=== PATIENT | female | born 1950 | race Caucasian/White ===

== ENCOUNTER 2018-08-14 21:08 | Emergency (ER) | payer BC, OTHER ==
[~2018-08-14] VITALS: Ht 152.4 cm; Wt 90.7 kg
[2018-08-14 21:12] VITALS: BP_SYST 138
--- NOTE | 2018-08-14 21:19 | NUR ---
211 - Patient to ER bed 4 to gown for evaluation. Side rails up.
--- NOTE | 2018-08-14 21:36 | NUR ---
2136 - ER at bedside examining patient.
--- NOTE | 2018-08-14 21:48 | NUR ---
2148 - Patient given written and verbal discharge instructions and verbalizes understanding. ER MD discussed with patient the results and treatment provided. Patient in stable condition. ID arm band removed. Patient educated on pain management and to follow up with PMD. Opportunity for questions provided and answered. Medication side effect fact sheet provided.
[2018-08-14 21:49] VITALS: BP_SYST 138
== END 2018-08-14 21:48 | disposition home or self-care (01) ==
LOC: SED 21:08
DX: S01.01XA Laceration without foreign body of scalp, initial encounter (principal); E11.9 Type 2 diabetes mellitus without complications; I10 Essential (primary) hypertension; X58.XXXA Exposure to other specified factors, initial encounter; Y93.89 Activity, other specified; Y92.89 Other specified places as the place of occurrence of the external cause; Y99.8 Other external cause status
CPT/HCPCS: 99283

== ENCOUNTER 2022-08-07 11:47 | Inpatient (IN) | payer BC, OTHER ==
[~2022-08-07] VITALS: Ht 165.1 cm; Wt 87.1 kg
[2022-08-07 11:47] VITALS: BP_SYST 90
--- NOTE | 2022-08-07 11:50 | NUR ---
BROUGHT IN BY [facility], PLACED IN BED #3 REPORT GIVEN TO JL
[2022-08-07] MEDS ORDERED: NACL 0.9% 1,000 ML IV ONE ×2 (12:15→13:00)
--- NOTE | 2022-08-07 12:17 | NUR ---
PT TAD after being found on floor by her belkis AOX3-4 VSS Able to make needs known IV 18G inserted left AC Will continue to monitor
[2022-08-07 12:37] LABS: BASOPHILS % (AUTO) 0.3 % (0.0-2.0); EOSINOPHILS % (AUTO) 0.1 % (0.0-4.0); HEMATOCRIT 30.7 % (36-48); HEMOGLOBIN 10.2 g/dL (12.0-16.0); LYMPHOCYTES # (AUTO) 0.9 K/uL (1.0-5.5); LYMPHOCYTES % (AUTO) 10.7 % (20.5-51.5); MEAN CORPUSCULAR HEMOGLOBIN 38 pg (27-31); MEAN CORPUSCULAR HGB CONC 33 % (32-36); MEAN CORPUSCULAR VOLUME 115 fL (79.0-98.0); MONOCYTES # (AUTO) 0.6 K/uL (0.0-1.0); MONOCYTES % (AUTO) 6.9 % (1.7-9.3); NEUTROPHILS # (AUTO) 7.3 K/uL (1.8-7.7); PLATELET COUNT (AUTO) 127 K/uL (130-430); RED BLOOD CELL COUNT(AUTO) 2.68 MIL/uL (4.2-6.2); RED CELL DISTRIBUTION WIDTH 18.9 % (9.0-15.0); WHITE BLOOD COUNT (AUTO) 8.9 K/uL (4.8-10.8)
[2022-08-07 12:52] LABS: ANION GAP 23 (5-15); CALCIUM 9.4 mg/dL (8.4-11.0); CHLORIDE 102 mmol/L (98-107); CREATININE 3.47 mg/dL (0.55-1.30); GLUCOSE 110 mg/dL (70-99); UREA NITROGEN, BLOOD 64 mg/dL (8-21)
[2022-08-07 12:56] LABS: INR 1.4 (0.8-1.2); PROTHROMBIN TIME 14.1 SECS (9.5-12.5)
[2022-08-07 12:58] LABS: ALANINE AMINOTRANSFERASE 99 U/L (12-78); ALBUMIN 3.1 g/dL (3.4-4.8); ALCOHOL, BLOOD 5 mg/dL (<10); ASPARTATE AMINOTRANSFERASE 69 U/L (10-37); LIPASE 321 U/L (73-393); PHOSPHORUS 7.1 mg/dL (2.7-4.5); TOTAL BILIRUBIN 2.6 mg/dL (0.0-1.0)
[2022-08-07 13:00] LABS: ACETAMINOPHEN < 1 ug/mL (1-30)
[2022-08-07 13:05] LABS: BILIRUBIN,URINE 2+ (NEGATIVE); BLOOD, URINE 1+ (NEGATIVE); CLARITY/URINE TURBID (CLEAR); COLOR,URINE YELLOW (YELLOW); GLUCOSE,URINE NEGATIVE (NEGATIVE); KETONES,URINE 1+ (NEGATIVE); LEUKOCYTE ESTERASE ,URINE 2+ (NEGATIVE); NITRITE, URINE NEGATIVE (NEGATIVE); PH,URINE 5.5 (5.0-8.0); PROTEIN URINE 1+ (NEGATIVE)
[2022-08-07 13:13] LABS: BACTERIA,URINE MODERATE /HPF (None Seen)
[2022-08-07 13:20] LABS: BARBITURATE, URINE NEGATIVE (NEG <=200); BENZODIAZEPINE, URINE NEGATIVE (NEG <=150); CANNABINOID, URINE NEGATIVE (NEG <=50); COCAINE, URINE NEGATIVE (NEG <=150); METHAMPHETAMINES SCREEN,URINE NEGATIVE (NEG <=500); OPIATE, URINE NEGATIVE (NEG <=100); PHENCYCLIDINE SCREEN,URINE NEGATIVE (NEG <=25); UR TRICYCLIC ANTIDEPRESSANTS NEGATIVE (NEG <=300); URINE AMPHETAMINE NEGATIVE (NEG <=500); URINE METHADONE NEGATIVE (NEG <=200); URINE OXYCODONE SCREEN NEGATIVE (NEG <=100); URINE PROPOXYPHENE SCREEN NEGATIVE (NEG <=300)
--- NOTE | 2022-08-07 13:20 | NUR ---
COVID and UA specimens sent to lab
[2022-08-07 13:21] LABS: CKMB RELATIVE INDEX 4.2 (0.0-2.9); CREATINE KINASE MB 10.1 ng/mL (0-3.6)
[2022-08-07] MEDS ORDERED: cefTRIAXone 1 GM in D5W 50 ML IV ONE (13:45)
--- NOTE | 2022-08-07 14:28 | NUR ---
Pt resting patiently in bed Tachycardic AOX4 Able to make needs known Will continue to monitor
[2022-08-07] MEDS ORDERED: cefTRIAXone 1 GM VIAL ONE (14:38)
--- NOTE | 2022-08-07 14:51 | NUR ---
S/W sister Pham States that patient cognitive abilities has secreased over that last few weeks Also reports family history of Stroke and CA
[2022-08-07] MEDS ORDERED: ONDANSETRON HCL 4 MG/2 ML VIAL IVP PRN (15:15)
[2022-08-07 15:17] LABS: AMYLASE 34 U/L (0-100); LIPASE 314 U/L (73-393)
[2022-08-07] MEDS: NACL 0.9% 1,000 ML IV SCH ×2 (15:37→15:48)
[2022-08-07] MEDS ORDERED: ENOXAPARIN SODIUM 30 MG/0.3 ML SYRINGE SUBCUT ONE (15:45)
[2022-08-07] MEDS ORDERED: LORazepam 2 MG/ML VIAL IVP ONE (15:45)
--- NOTE | 2022-08-07 15:49 | NUR ---
Per Nati, Inspector Insulation MRI to be done tomorrow morning
--- NOTE | 2022-08-07 17:02 | NUR ---
Admit bed requested Patient will be admitted to care of . Admitted to TELE unit. Diagnosis AMS, REGINA Inpatient (Yes or No) YES Observation (Yes or No) NO Orientation concerns or request close to nursing station (Yes or No) NO Covid Status NEG On vent or bipap NO Isolation requirements NO Needs a sitter NO From Home (Yes or if No enter name of facility) [facility] Requires Dialysis (Yes or No) NO Med Rec Completed (Yes of No) YES
--- NOTE | 2022-08-07 17:12 | NUR ---
Pt resting comfortably in bed at this time AOX4 VSS Able to make needs known Pt to be admitted to tele under Dr. walker
--- NOTE | 2022-08-07 17:47 | NUR ---
Patient will be admitted to Tele in care of Dr. Chase. Belongings list completed. Complete and up to date summary report printed. SBAR report to be given at bedside with opportunity for questions.
--- NOTE | 2022-08-07 17:54 | NUR ---
CONSULTATION PAGED/CALLED Reason for Consultation: [] REGINA Person Who was Notified: [] ASHLI Consulting Physician: [] DR SALGUERO Motion Designer Specialty: [] NEPHRO Ordering Physician: [] DR LLOYD
--- NOTE | 2022-08-07 17:57 | NUR ---
CONSULTATION PAGED REASON FOR CONSULTATION:REGINA WAS CONSULT CALLED?Y PERSON WHO WAS NOTIFIED:JESSICA CONSULTING PHYSICIAN:TANA PALMA ( TOY ASSEMBLER WOOD) HAZARDOUS WASTE MATERIAL TECHNICIAN SPECIALTY:NEPHRO HAZARDOUS WASTE MATERIAL TECHNICIAN PHONE NUMBER:[phone] REQUESTING PHYSICIAN:KIRSTY MEYER
--- NOTE | 2022-08-07 17:57 | NUR ---
CONSULTATION PAGED/CALLED Reason for Consultation: [] ELEVATED TROP Person Who was Notified: [] ASHLI Consulting Physician: [] DR HODGES Call Worker Person Specialty: [] CLEANER WALL Ordering Physician: [] DR LLOYD
--- NOTE | 2022-08-07 17:58 | NUR ---
TEXTED NEUROLOGY CONSULT TO DR Carole BLAS RE: DENIS ON HIS CELL PHONE.
[2022-08-07 18:04] VITALS: BP_SYST 102
--- NOTE | 2022-08-07 18:10 | NUR ---
ADMIT NOTES- IN BED, FROM ER, ALERT,FORGETFUL, PER PATIENT SHE LIVES ALONE AND SHE IS WORRIED ABOUT HER HOUSE AT THIS TIME.DENIES ANY PAIN, ON MILD DISTRESS, O2 SAT IS 88% APPLIED O2 2L, DENIES ANY SHORTNESS OF BREATH, O2 SAT IS 90 91% IN 2L. BED ALARM ON, CALL LIGHT WITHIN REACH.
[2022-08-07 20:00] VITALS: BP_SYST 96
[2022-08-07] MEDS: PIPERACILLIN/TAZO 2.25G/DEX-IS 50 ML IV SCH (23:25)
[2022-08-08] VITALS: BP_SYST 100
[2022-08-08] MEDS: NACL 0.9% 1,000 ML IV SCH ×4 (01:15→23:19)
[2022-08-08] MEDS: PIPERACILLIN/TAZO 2.25G/DEX-IS 50 ML IV SCH ×3 (05:49→18:39)
[2022-08-08 06:27] LABS: BASOPHILS # (AUTO) 0.1 K/uL (0.0-0.2); BASOPHILS % (AUTO) 0.9 % (0.0-2.0); EOSINOPHILS % (AUTO) 0.1 % (0.0-4.0); HEMATOCRIT 31.8 % (36-48); HEMOGLOBIN 10.4 g/dL (12.0-16.0); LYMPHOCYTES # (AUTO) 1.1 K/uL (1.0-5.5); LYMPHOCYTES % (AUTO) 10.4 % (20.5-51.5); MEAN CORPUSCULAR HEMOGLOBIN 38 pg (27-31); MEAN CORPUSCULAR HGB CONC 33 % (32-36); MEAN CORPUSCULAR VOLUME 116 fL (79.0-98.0); MONOCYTES # (AUTO) 0.7 K/uL (0.0-1.0); MONOCYTES % (AUTO) 6.6 % (1.7-9.3); NEUTROPHILS # (AUTO) 8.3 K/uL (1.8-7.7); RED BLOOD CELL COUNT(AUTO) 2.75 MIL/uL (4.2-6.2); WHITE BLOOD COUNT (AUTO) 10.2 K/uL (4.8-10.8)
[2022-08-08 06:58] LABS: ALANINE AMINOTRANSFERASE 108 U/L (12-78); ALBUMIN 3.1 g/dL (3.4-4.8); ANION GAP 25 (5-15); ASPARTATE AMINOTRANSFERASE 73 U/L (10-37); CALCIUM 8.9 mg/dL (8.4-11.0); CHLORIDE 104 mmol/L (98-107); CREATININE 3.49 mg/dL (0.55-1.30); GLUCOSE 96 mg/dL (70-99); UREA NITROGEN, BLOOD 63 mg/dL (8-21)
[2022-08-08] MEDS ORDERED: GASTROGRAFIN 120 ML ONE (08:46)
[2022-08-08] MEDS ORDERED: DIATR MEGLU/DIATRIZ SOD 30 ML SOLUTION PO ONE (08:49)
[2022-08-08 08:53] LABS: INR 1.4 (0.8-1.2); PROTHROMBIN TIME 13.8 SECS (9.5-12.5)
--- NOTE | 2022-08-08 09:13 | NUR ---
DR HODGES ORDERED THE LIST OF MEDICATION FROM DR JAIR OLGUIN OFFICE. SPOKE TO KEON AND WILL FAX THE LIST OF MED.
[2022-08-08] MEDS: ENOXAPARIN SODIUM 30 MG/0.3 ML SYRINGE SUBCUT SCH (10:14)
[2022-08-08 11:47] LABS: PLATELET COUNT (AUTO) 139 K/uL (130-430)
[2022-08-08 12:00] VITALS: BP_SYST 108
[2022-08-08] MEDS ORDERED: LISI2.5T48 PO (14:07)
[2022-08-08] MEDS ORDERED: METF-379 PO (14:07)
[2022-08-08] MEDS ORDERED: SIMV-345 PO (14:07)
[2022-08-08] MEDS ORDERED: ASA81 PO (14:07)
--- NOTE | 2022-08-08 15:26 | NUR ---
Wound Evaluation: Wound Consult ordered for Low Thierno Score. Patient evaluated for a low Thierno score of 14. Patient was awake, alert, confused and received in a Ml Bed. Patient needs to be turned in bed. Skin Assessment: Left Elbow Blanchable redness with dry excoriations. Extremity has multiple ecchymotic areas. Right Elbow Blanchable redness with dry excoriations. Extremity has multiple ecchymotic areas. Right Knee Blanchable redness with dry scabs. Extremity has multiple ecchymotic areas. Left Knee Blanchable redness with dry excoriations. Extremity has multiple ecchymotic areas. Recommend: Open to air. Left Buttock Near Ischium Blanchable redness with dry excoriations. Site has multiple ecchymotic areas. Recommend: Cover site with foam dressing. Reposition patient side to side only every 2 hours with pillow support. Elevate trunk and left pelvis with pillows. Keep an additional pillow on left pelvis at all times. Also recommend: Elevate, off-load and float bilateral heels with pillows. Offload pressure areas with pillows for pressure re-distribution. Perform skin care and monitor skin integrity Q shift. Use moisture barrier cream on moisture susceptible areas QID and PRN for soiling. Place patient on a low air-loss mattress.
--- NOTE | 2022-08-08 15:36 | NUR ---
ST EVALUATION COMPLETED. ST TX NOT INDICATED AT THIS TIME. RECOMMEND PO DIET OF PUREE AND THIN LIQUID. 1:1 ASSISTANCE AND FULL ASPIRATION PRECAUTIONS
[2022-08-08 16:00] VITALS: BP_SYST 116
--- NOTE | 2022-08-08 19:50 | NUR ---
Opening note Received SBAR report from ASH Flores. Patient is awake, resting in bed, no distress. IVF is infusing via IV to LFA. Bed is locked in lowest position, side rails up, call light w/in reach and bed alarm on.
[2022-08-08 20:50] VITALS: BP_SYST 110
[2022-08-08] MEDS: METOPROLOL TARTRATE 25 MG TABLET PO SCH (21:00)
--- NOTE | 2022-08-08 23:30 | NUR ---
Patient care, IVF Hung new bag of IVF and infusing well. Patient is incontinent: noted urine and BM on pad. She was provided w/ partial bed bath, new bed linen and pad.
--- NOTE | 2022-08-08 23:55 | NUR ---
In/out orona catheter Procedure explained to patient, she verbalized understanding and agreed to procedure. I/O orona catheter inserted w/use of sterile technique. A small amount, less than 10 ml of yellow urine returned, not enough to send a sample. joy.
[2022-08-09] MEDS: PIPERACILLIN/TAZO 2.25G/DEX-IS 50 ML IV SCH ×4 (00:36→18:39)
--- NOTE | 2022-08-09 00:36 | NUR ---
Zosyn Administered Zosyn as ordered, no s/sx of infiltration noted. B/P presently 113/72 HR 91. Safety precautions in place
[2022-08-09 01:15] VITALS: BP_SYST 113
--- NOTE | 2022-08-09 01:26 | NUR ---
care of patient taken over by myself at 0115. vital signs take at that time and documented. pt in bed, resting with eyes closed. pt able to answer my questions and make needs known. pt requested more sleep, and no other request were made. will take over charting and medication on patient at 0115.
[2022-08-09 04:00] VITALS: BP_SYST 106
[2022-08-09 06:54] LABS: BASOPHILS % (AUTO) 0.6 % (0.0-2.0); EOSINOPHILS % (AUTO) 0.4 % (0.0-4.0); HEMATOCRIT 29.5 % (36-48); HEMOGLOBIN 9.9 g/dL (12.0-16.0); LYMPHOCYTES # (AUTO) 1.2 K/uL (1.0-5.5); LYMPHOCYTES % (AUTO) 16.4 % (20.5-51.5); MEAN CORPUSCULAR HEMOGLOBIN 38 pg (27-31); MEAN CORPUSCULAR HGB CONC 33 % (32-36); MEAN CORPUSCULAR VOLUME 115 fL (79.0-98.0); MONOCYTES # (AUTO) 0.7 K/uL (0.0-1.0); MONOCYTES % (AUTO) 8.9 % (1.7-9.3); NEUTROPHILS # (AUTO) 5.5 K/uL (1.8-7.7); NEUTROPHILS % (AUTO) 73.7 % (40.0-70.0); PLATELET COUNT (AUTO) 109 K/uL (130-430); RED BLOOD CELL COUNT(AUTO) 2.58 MIL/uL (4.2-6.2); WHITE BLOOD COUNT (AUTO) 7.4 K/uL (4.8-10.8)
[2022-08-09 07:37] LABS: ALANINE AMINOTRANSFERASE 102 U/L (12-78); ALBUMIN 2.9 g/dL (3.4-4.8); ANION GAP 22 (5-15); ASPARTATE AMINOTRANSFERASE 61 U/L (10-37); CALCIUM 8.5 mg/dL (8.4-11.0); CHLORIDE 106 mmol/L (98-107); CREATININE 3.68 mg/dL (0.55-1.30); GLUCOSE 91 mg/dL (70-99); TOTAL BILIRUBIN 1.6 mg/dL (0.0-1.0); UREA NITROGEN, BLOOD 66 mg/dL (8-21)
[2022-08-09 07:38] LABS: RED CELL DISTRIBUTION WIDTH 19.2 % (9.0-15.0)
[2022-08-09 07:45] VITALS: BP_SYST 108
[2022-08-09] MEDS ORDERED: NACL 0.9% 1,000 ML IV SCH (08:15)
[2022-08-09 09:00] LABS: URINE SODIUM, RANDOM 8 mmol/L (40-220)
[2022-08-09] MEDS: ENOXAPARIN SODIUM 30 MG/0.3 ML SYRINGE SUBCUT SCH (09:28)
[2022-08-09] MEDS: METOPROLOL TARTRATE 25 MG TABLET PO SCH (09:37)
[2022-08-09] MEDS ORDERED: ALBUMIN HUMAN 5% 250 ML IV ONE (11:00)
[2022-08-09 13:35] VITALS: BP_SYST 123
[2022-08-09] MEDS: NACL 0.9% 1,000 ML IV SCH (13:43)
--- NOTE | 2022-08-09 15:55 | NUR ---
Dietitian Recommendations * Continue Pureed diet (Ensure TID comes standard w/ current diet; ONS yields 1050 kcal/day, 60 gm protein/day) * Encourage good PO intakes LP, MS, RD Please refer to Nutrition Assessment for details. Addendum: 08/09/22 at [address] Amended: Links added.
[2022-08-09 17:22] VITALS: BP_SYST 110
[2022-08-09 20:00] VITALS: BP_SYST 90
[2022-08-10] VITALS: BP_SYST 98
[2022-08-10] MEDS: PIPERACILLIN/TAZO 2.25G/DEX-IS 50 ML IV SCH ×4 (00:29→17:19)
[2022-08-10] MEDS: NACL 0.9% 1,000 ML IV SCH ×2 (02:34→23:00)
[2022-08-10 03:08] LABS: HEPATITIS A AB, IgM Negative (Negative); HEPATITIS B CORE AB, IgM Negative (Negative); HEPATITIS B SURFACE AG Negative (Negative)
[2022-08-10 04:00] VITALS: BP_SYST 95
[2022-08-10 07:42] LABS: BASOPHILS % (AUTO) 0.5 % (0.0-2.0); EOSINOPHILS # (AUTO) 0.1 K/uL (0.0-0.4); EOSINOPHILS % (AUTO) 1.3 % (0.0-4.0); HEMATOCRIT 28.1 % (36-48); HEMOGLOBIN 9.4 g/dL (12.0-16.0); LYMPHOCYTES # (AUTO) 1.2 K/uL (1.0-5.5); LYMPHOCYTES % (AUTO) 20.2 % (20.5-51.5); MEAN CORPUSCULAR HEMOGLOBIN 38 pg (27-31); MEAN CORPUSCULAR HGB CONC 33 % (32-36); MEAN CORPUSCULAR VOLUME 114 fL (79.0-98.0); MONOCYTES # (AUTO) 0.7 K/uL (0.0-1.0); MONOCYTES % (AUTO) 11.6 % (1.7-9.3); NEUTROPHILS # (AUTO) 3.8 K/uL (1.8-7.7); NEUTROPHILS % (AUTO) 66.4 % (40.0-70.0); PLATELET COUNT (AUTO) 96 K/uL (130-430); RED BLOOD CELL COUNT(AUTO) 2.46 MIL/uL (4.2-6.2); RED CELL DISTRIBUTION WIDTH 19.1 % (9.0-15.0); WHITE BLOOD COUNT (AUTO) 5.7 K/uL (4.8-10.8)
[2022-08-10 07:45] LABS: ALANINE AMINOTRANSFERASE 90 U/L (12-78); ALBUMIN 2.7 g/dL (3.4-4.8); ANION GAP 19 (5-15); ASPARTATE AMINOTRANSFERASE 50 U/L (10-37); CALCIUM 8.3 mg/dL (8.4-11.0); CHLORIDE 107 mmol/L (98-107); CREATININE 4.01 mg/dL (0.55-1.30); GLUCOSE 133 mg/dL (70-99); TOTAL BILIRUBIN 1.2 mg/dL (0.0-1.0); UREA NITROGEN, BLOOD 64 mg/dL (8-21)
[2022-08-10 08:00] VITALS: BP_SYST 118
--- NOTE | 2022-08-10 08:00 | NUR ---
START OF SHIFT. Pt sitting up in bed to eat her breakfast. IV in left hand intact and patent infusing IVF's well. Pt's tele unit attached and intact at this time. Pt's side rails raised and bed alarm on. Bed in low position and near nurses' station fo close observation for needs and care. Call light within reach.
--- NOTE | 2022-08-10 09:15 | NUR ---
Note Family friend at bedside (Denise Marks) and gave RN name and cellphone numbers of contact family for pt. Abiodun Zepeda (Primary caregiver)[phone]; Chen Kwok [phone] d
[2022-08-10 12:30] VITALS: BP_SYST 114
--- NOTE | 2022-08-10 14:40 | NUR ---
Note Pt's sister Chen (power of atty.) just called for an update on pt's status. Pt has been pulled up in bed frequently all shift and turned q2'. Pt pulls off her tele unit and gown all shift, has to be reattached to tele and gown put back on. Call light within reach.
[2022-08-10 15:25] VITALS: BP_SYST 122
--- NOTE | 2022-08-10 17:45 | NUR ---
Tele Pt's tele unit has been attached to her all shift. Pt keeps removing tele unit and gown all shift. Tele unit was dc'd as pt will not keep tele unit on and pt stable cardiac sena at this time.
--- NOTE | 2022-08-10 17:57 | NUR ---
Note Dr Ketan Damon was called and notified that tele unit was dc'd and pt now Med/Surg as pt keeps repeatedly removing tele unit. agreed with dc tele.
--- NOTE | 2022-08-10 18:23 | NUR ---
End of shift. Pt sleeping, refused her dinner tray which has been left on bedside table if pt gets hungry a little on in the shift. No SOB/resp distress or chest pain/discomfort noted at this time. IV in left forearm intact and patent infusing IVF's well. Bed in low position and bed alarm on. Side rails raised all shift. Call light within reach. No needs noted at this time.
[2022-08-10 20:06] VITALS: BP_SYST 151
[2022-08-11] VITALS: BP_SYST 152
[2022-08-11] MEDS: PIPERACILLIN/TAZO 2.25G/DEX-IS 50 ML IV SCH ×4 (05:41→19:04)
--- NOTE | 2022-08-11 07:45 | NUR ---
OPENING NOTES: RECEIVED BEDSIDE SBAR FROM PM SHIFT NURSE, NO S/S OF ANY DISTRESS, NON LABOR BREATHING, BED AT LOW AND LOCKED POSITION CALL LIGHT IN REACH PATIENT IS RESTING IN BED WITH EYES CLOSED, SAFETY CHECKS DONE AND WILL DO THOUGHT THE DAY, WILL MONITOR PATIENT PER ORDERS.
[2022-08-11 08:43] LABS: BASOPHILS % (AUTO) 0.6 % (0.0-2.0); EOSINOPHILS # (AUTO) 0.1 K/uL (0.0-0.4); EOSINOPHILS % (AUTO) 1.1 % (0.0-4.0); HEMATOCRIT 29.7 % (36-48); HEMOGLOBIN 9.9 g/dL (12.0-16.0); LYMPHOCYTES # (AUTO) 1.1 K/uL (1.0-5.5); LYMPHOCYTES % (AUTO) 20.5 % (20.5-51.5); MEAN CORPUSCULAR HEMOGLOBIN 38 pg (27-31); MEAN CORPUSCULAR HGB CONC 33 % (32-36); MEAN CORPUSCULAR VOLUME 115 fL (79.0-98.0); MONOCYTES # (AUTO) 0.7 K/uL (0.0-1.0); MONOCYTES % (AUTO) 13.2 % (1.7-9.3); NEUTROPHILS # (AUTO) 3.6 K/uL (1.8-7.7); NEUTROPHILS % (AUTO) 64.6 % (40.0-70.0); PLATELET COUNT (AUTO) 88 K/uL (130-430); RED BLOOD CELL COUNT(AUTO) 2.59 MIL/uL (4.2-6.2); RED CELL DISTRIBUTION WIDTH 20.2 % (9.0-15.0); WHITE BLOOD COUNT (AUTO) 5.5 K/uL (4.8-10.8)
[2022-08-11 09:00] LABS: ERYTHROCYTE SEDIMENTATION RATE 25 MM/HR (0-20)
[2022-08-11 09:05] LABS: ALANINE AMINOTRANSFERASE 87 U/L (12-78); ALBUMIN 2.8 g/dL (3.4-4.8); ANION GAP 18 (5-15); ASPARTATE AMINOTRANSFERASE 53 U/L (10-37); C-REACTIVE PROTEIN QUANT 3.7 mg/dL (0-0.5); CALCIUM 8.4 mg/dL (8.4-11.0); CHLORIDE 107 mmol/L (98-107); CREATININE 4.44 mg/dL (0.55-1.30); GLUCOSE 129 mg/dL (70-99); PHOSPHORUS 5.4 mg/dL (2.7-4.5); UREA NITROGEN, BLOOD 75 mg/dL (8-21)
[2022-08-11 09:18] LABS: TOTAL BILIRUBIN 1.2 mg/dL (0.0-1.0)
[2022-08-11 12:30] VITALS: BP_SYST 143
--- NOTE | 2022-08-11 13:33 | NUR ---
CONSULTATION PAGED/CALLED Reason for Consultation: TRANSAMINITIS Person Who was Notified: LUIS DANIEL Consulting Physician: DR. GARCIA-DR. EVANS ROUNDING MACHINE OPERATOR Sole Tacker Specialty: GI Ordering Physician: DR. Mirna HAMPTON
[2022-08-11] MEDS: NACL 0.9% 1,000 ML IV SCH (14:50)
[2022-08-11 16:18] VITALS: BP_SYST 151
--- NOTE | 2022-08-11 19:30 | NUR ---
OPENING NOTES Patient resting in bed - no s/s pain or distress noted. Respirations even and unlabored - head of bed elevated. IV site patent - no s/s redness, infection, or infiltration. Bed locked and in lowest position. Call light within reach - bed alarm on.
[2022-08-11 20:00] VITALS: BP_SYST 96
[2022-08-11] MEDS: RIFAXIMIN 550 MG TABLET PO SCH (21:13)
[2022-08-11] MEDS: LACTULOSE 20 GM/30 ML UDC PO SCH (21:13)
[2022-08-12] VITALS: BP_SYST 103
--- NOTE | 2022-08-12 00:13 | NUR ---
patient rips out IV
[2022-08-12] MEDS: NACL 0.9% 1,000 ML IV SCH ×3 (00:48→20:48)
--- NOTE | 2022-08-12 02:15 | NUR ---
new iv inserted L hand 24G
[2022-08-12] MEDS: PIPERACILLIN/TAZO 2.25G/DEX-IS 50 ML IV SCH ×2 (02:20→05:04)
[2022-08-12 07:25] LABS: BASOPHILS % (AUTO) 0.6 % (0.0-2.0); EOSINOPHILS # (AUTO) 0.1 K/uL (0.0-0.4); EOSINOPHILS % (AUTO) 1.7 % (0.0-4.0); HEMATOCRIT 28.7 % (36-48); HEMOGLOBIN 9.6 g/dL (12.0-16.0); LYMPHOCYTES # (AUTO) 1.1 K/uL (1.0-5.5); LYMPHOCYTES % (AUTO) 19.4 % (20.5-51.5); MEAN CORPUSCULAR HEMOGLOBIN 38 pg (27-31); MEAN CORPUSCULAR HGB CONC 33 % (32-36); MEAN CORPUSCULAR VOLUME 114 fL (79.0-98.0); MONOCYTES # (AUTO) 0.8 K/uL (0.0-1.0); MONOCYTES % (AUTO) 14.5 % (1.7-9.3); NEUTROPHILS # (AUTO) 3.7 K/uL (1.8-7.7); NEUTROPHILS % (AUTO) 63.8 % (40.0-70.0); PLATELET COUNT (AUTO) 76 K/uL (130-430); RED BLOOD CELL COUNT(AUTO) 2.52 MIL/uL (4.2-6.2); WHITE BLOOD COUNT (AUTO) 5.8 K/uL (4.8-10.8)
--- NOTE | 2022-08-12 07:38 | NUR ---
CLOSING NOTES Patient resting in bed - no s/s pain or distress noted. Respirations even and unlabored - head of bed elevated. IV site patent - no s/s redness, infection, or infiltration. Bed locked and in lowest position. Call light within reach - bed alarm on Addendum: 08/12/22 at 0739 by Jonas Stout RN patient cleaned linens changed throughout shift
[2022-08-12 07:45] VITALS: BP_SYST 155
[2022-08-12 08:04] LABS: INR 1.3 (0.8-1.2); PROTHROMBIN TIME 12.6 SECS (9.5-12.5)
[2022-08-12 08:14] LABS: ALANINE AMINOTRANSFERASE 80 U/L (12-78); ALBUMIN 2.8 g/dL (3.4-4.8); ANION GAP 21 (5-15); ASPARTATE AMINOTRANSFERASE 44 U/L (10-37); C-REACTIVE PROTEIN QUANT 3.3 mg/dL (0-0.5); CALCIUM 8.6 mg/dL (8.4-11.0); CHLORIDE 109 mmol/L (98-107); CREATININE 4.71 mg/dL (0.55-1.30); GLUCOSE 121 mg/dL (70-99); PHOSPHORUS 5.6 mg/dL (2.7-4.5); TOTAL BILIRUBIN 1.1 mg/dL (0.0-1.0); UREA NITROGEN, BLOOD 73 mg/dL (8-21)
[2022-08-12] MEDS: LACTULOSE 20 GM/30 ML UDC PO SCH ×3 (08:56→20:46)
[2022-08-12] MEDS: RIFAXIMIN 550 MG TABLET PO SCH ×2 (08:56→20:46)
[2022-08-12 09:04] LABS: TOTAL IRON BIND. CAPACITY 190 ug/dL (250-450)
[2022-08-12 09:20] LABS: ERYTHROCYTE SEDIMENTATION RATE 62 MM/HR (0-20)
[2022-08-12 11:28] VITALS: BP_SYST 100
[2022-08-12] MEDS ORDERED: POTASSIUM CHLORIDE 20 MEQ/PKT PACKET PO ONE (12:45)
--- NOTE | 2022-08-12 15:27 | NUR ---
PHYSICAL THERAPY CO-SIGN The Physical Therapy Progress Notes documented by Last Puller have been reviewed. Reviewed/Co-Signed by: Shashank Jason Documentation Done by:ASHLEY AVINA Addendum: 08/12/22 at 1527 by Shashank Jason PT Amended: Links added.
[2022-08-12] MEDS: cefTRIAXone 1 GM IVPB PREMIX 50 ML IV SCH (15:48)
[2022-08-12 16:49] VITALS: BP_SYST 104
--- NOTE | 2022-08-12 19:30 | NUR ---
OPENING NOTES Patient resting in bed - no s/s pain or distress noted. Respirations even and unlabored - head of bed elevated. NO IV SITE . Bed locked and in lowest position. Call light within reach - bed alarm on.
[2022-08-12 20:00] VITALS: BP_SYST 102
[2022-08-13 01:01] VITALS: BP_SYST 110
[2022-08-13 06:14] LABS: BASOPHILS % (AUTO) 0.4 % (0.0-2.0); EOSINOPHILS # (AUTO) 0.1 K/uL (0.0-0.4); EOSINOPHILS % (AUTO) 1.8 % (0.0-4.0); HEMATOCRIT 29.2 % (36-48); HEMOGLOBIN 9.6 g/dL (12.0-16.0); LYMPHOCYTES # (AUTO) 0.9 K/uL (1.0-5.5); LYMPHOCYTES % (AUTO) 16.1 % (20.5-51.5); MEAN CORPUSCULAR HEMOGLOBIN 38 pg (27-31); MEAN CORPUSCULAR HGB CONC 33 % (32-36); MEAN CORPUSCULAR VOLUME 115 fL (79.0-98.0); MONOCYTES # (AUTO) 0.7 K/uL (0.0-1.0); MONOCYTES % (AUTO) 13.4 % (1.7-9.3); NEUTROPHILS # (AUTO) 3.8 K/uL (1.8-7.7); NEUTROPHILS % (AUTO) 68.3 % (40.0-70.0); PLATELET COUNT (AUTO) 67 K/uL (130-430); RED BLOOD CELL COUNT(AUTO) 2.55 MIL/uL (4.2-6.2); WHITE BLOOD COUNT (AUTO) 5.5 K/uL (4.8-10.8)
[2022-08-13] MEDS: NACL 0.9% 1,000 ML IV SCH ×3 (06:48→23:04)
[2022-08-13 07:06] LABS: ALANINE AMINOTRANSFERASE 73 U/L (12-78); ALBUMIN 2.6 g/dL (3.4-4.8); ANION GAP 22 (5-15); ASPARTATE AMINOTRANSFERASE 42 U/L (10-37); CALCIUM 8.9 mg/dL (8.4-11.0); CHLORIDE 110 mmol/L (98-107); CREATININE 4.78 mg/dL (0.55-1.30); GLUCOSE 122 mg/dL (70-99); TOTAL BILIRUBIN 0.9 mg/dL (0.0-1.0); UREA NITROGEN, BLOOD 78 mg/dL (8-21)
[2022-08-13 07:06] LABS: ALPHA-1-ANTITRYPSIN, S 203 mg/dL (101-187)
[2022-08-13 07:39] VITALS: BP_SYST 109
--- NOTE | 2022-08-13 07:51 | NUR ---
CLOSING NOTES Patient resting in bed - no s/s pain or distress noted. Respirations even and unlabored - head of bed elevated. IV site patent - no s/s redness, infection, or infiltration. Bed locked and in lowest position. Call light within reach - bed alarm on. new iv inserted [id number]
[2022-08-13] MEDS: LACTULOSE 20 GM/30 ML UDC PO SCH ×4 (08:47→21:48)
[2022-08-13] MEDS: RIFAXIMIN 550 MG TABLET PO SCH ×3 (08:47→21:48)
[2022-08-13 10:06] LABS: ANTI NUCLEAR AB WITH REFLEX Negative (Negative)
[2022-08-13 11:20] VITALS: BP_SYST 107
--- NOTE | 2022-08-13 11:31 | NUR ---
Nutrition F/U RD reviewed pts current EMR including diet hx, physician notes, nursing notes, pertinent labs/meds/procedures, care trends and care activity. Subjective Information Pt visit deferred to heavy caseload. Per LOS, pt likely to be DC to SNF once placement is confirmed. Per EMR review: abd soft, non-distended w/ active bowel sounds; pulse 120 H; BP WNL, pt on room air; pt is consuming negligible PO and has been since admit (6 days). Pt is not meeting nutritional needs at this time. Current Diet Order/Nutrition Support Puree x 4 days % PO intake Negligible <25% x 7 meals Last BM 08/13 x 3 Estimated Energy Expenditure (kcals/day) 4626-6382 (25-30 kcal/kg Adj IBW d/t obesity, GERIAT status) Estimated Protein Required (g/day) 52-77 (0.8-1.2 gm/kg Adj IBW d/t REGINA/CKD, obesity, GERIAT status) Estimated Fluid Required (l/day) Per physician d/t REGINA/CKD Problem/Etiology/Signs/Symptoms Suboptimal nutritional intakes R/T metabolic demands AEB negligible PO intake records. *ongoing Expected Outcomes/Goals - Monitor appetite and PO intakes w/ goal of pt meeting >25% of estimated nutritional needs, labs trending WNL, normal GI function, and skin integrity/wt maintenance Dietitian Recommendations * Continue Pureed diet (Ensure TID comes standard w/ current diet; ONS yields 1050 kcal/day, 60 gm protein/day) * Encourage good PO intakes * Consider alternate nutrition if intakes stay negligible --Nepro @ 40 mL/hr (goal) via NGT/GT Provides: 1728 kcal, 78 g PRO, 698mL free water Follow up *High risk: see pt in 2-3 days GS, MPH, RD
--- NOTE | 2022-08-13 11:32 | NUR ---
Dietitian Recommendations * Continue Pureed diet (Ensure TID comes standard w/ current diet; ONS yields 1050 kcal/day, 60 gm protein/day) * Encourage good PO intakes * Consider alternate nutrition if intakes stay negligible --Nepro @ 40 mL/hr (goal) via NGT/GT Provides: 1728 kcal, 78 g PRO, 698mL free water GS, MPH, RD Please refer to Nutrition F/U for further details. Thanks!
[2022-08-13 12:06] LABS: AFP, TUMOR MARKER 8.7 ng/mL (0.0-9.2)
--- NOTE | 2022-08-13 14:44 | NUR ---
CONSULTATION: REASON FOR CONSULT: ESRD CONSULTING PHYSICIAN: YANETH ORDERED BY: NEIDA SPOKE WITH DEEDEE [phone]
[2022-08-13 15:22] VITALS: BP_SYST 112
--- NOTE | 2022-08-13 15:22 | NUR ---
PHYSICAL THERAPY CO-SIGN The Physical Therapy Progress Notes documented by Wheat Grower have been reviewed. Reviewed/Co-Signed by: Adryan Valenzuela Documentation Done by:ASHLEY AVINA Addendum: 08/13/22 at 1522 by dAryan Valenzuela PT Amended: Links added.
[2022-08-13 15:39] LABS: INR 1.2 (0.8-1.2); PROTHROMBIN TIME 12.3 SECS (9.5-12.5)
[2022-08-13] MEDS: cefTRIAXone 1 GM IVPB PREMIX 50 ML IV SCH (15:56)
--- NOTE | 2022-08-13 16:19 | NUR ---
DR WOLFE HERE ROUNDING AND WAS INFORMED OF CONSULT FOR DIALYSIS CATHETER INSERTION
--- NOTE | 2022-08-13 19:45 | NUR ---
NOTES: report given by nurse Baylee. pt. received awake but confused. IJ catheter on rt neck area dressing came off with some bleed noted. reminded pt. not to pull ou. IV infusing on rt. arm. bruising on both extremities and skin tear on left forearm, foan dressing in place. on fall risk precaution. call ligth at bedside.
[2022-08-13 20:00] VITALS: BP_SYST 116
--- NOTE | 2022-08-13 20:15 | NUR ---
NOTES: VS checked. complete hs care/landen care done. pt. incontinent of urine and stool. had bm. coccyx area reddened, Z francisco applied. rt. neck dressing applied and secured.
--- NOTE | 2022-08-13 22:00 | NUR ---
CYDNEY: due medications given crushed. HOB elevated. reorient and instructed not to pull anything thee. IV.
--- NOTE | 2022-08-14 01:15 | NUR ---
NOTES: still awake. rt. neck dressing reinforced, tape came out. condition guarded.
--- NOTE | 2022-08-14 03:45 | NUR ---
NOTES: pt. been dozing on and off. condition unchanged. bed alarm on.
--- NOTE | 2022-08-14 05:00 | NUR ---
NOTES: 24 hr checked done, noted with hemodialysis order, miscommunicated from the nurse who gave report. told nursing supervisor agency appointments May, no orders from yesterday given. print order and gave it to her for hemodialysis. rt. neck central catheter for dialysis intact, dressing reinforced again. , Nicol barajas informed to tell charge this am.
[2022-08-14 05:15] VITALS: BP_SYST 94
[2022-08-14 05:23] LABS: BASOPHILS % (AUTO) 0.4 % (0.0-2.0); EOSINOPHILS # (AUTO) 0.1 K/uL (0.0-0.4); EOSINOPHILS % (AUTO) 1.6 % (0.0-4.0); HEMATOCRIT 28.6 % (36-48); HEMOGLOBIN 9.4 g/dL (12.0-16.0); LYMPHOCYTES # (AUTO) 0.8 K/uL (1.0-5.5); LYMPHOCYTES % (AUTO) 13.7 % (20.5-51.5); MEAN CORPUSCULAR HEMOGLOBIN 38 pg (27-31); MEAN CORPUSCULAR HGB CONC 33 % (32-36); MEAN CORPUSCULAR VOLUME 115 fL (79.0-98.0); MONOCYTES # (AUTO) 0.8 K/uL (0.0-1.0); MONOCYTES % (AUTO) 13.6 % (1.7-9.3); NEUTROPHILS # (AUTO) 4.1 K/uL (1.8-7.7); NEUTROPHILS % (AUTO) 70.7 % (40.0-70.0); PLATELET COUNT (AUTO) 61 K/uL (130-430); RED CELL DISTRIBUTION WIDTH 19.1 % (9.0-15.0); WHITE BLOOD COUNT (AUTO) 5.7 K/uL (4.8-10.8)
--- NOTE | 2022-08-14 05:30 | NUR ---
NOTES: pt, checked and had large amts. of stool, landen care done. coccyx area red and raw, more Z francisco applied and kep t dry. able to help turn to sides. repositioned.
[2022-08-14 05:47] LABS: ANION GAP 17 (5-15); CALCIUM 8.7 mg/dL (8.4-11.0); CHLORIDE 112 mmol/L (98-107); GLUCOSE 124 mg/dL (70-99); UREA NITROGEN, BLOOD 81 mg/dL (8-21)
--- NOTE | 2022-08-14 06:55 | NUR ---
closing notes; pt. sleeping. for hemodialysis today. fall risk precaution observed. consent needs to be sign. for further care and observation will endorse to incoming shift.
[2022-08-14 07:35] VITALS: BP_SYST 112
[2022-08-14] MEDS: RIFAXIMIN 550 MG TABLET PO SCH ×2 (08:47→21:22)
[2022-08-14] MEDS: LACTULOSE 20 GM/30 ML UDC PO SCH ×3 (08:47→21:22)
[2022-08-14 11:27] VITALS: BP_SYST 109
[2022-08-14] MEDS: CALCIUM ACETATE 667 MG CAP PO SCH ×3 (12:00→18:00)
[2022-08-14] MEDS: NACL 0.9% 1,000 ML IV SCH (12:59)
[2022-08-14] MEDS: cefTRIAXone 1 GM IVPB PREMIX 50 ML IV SCH (15:16)
[2022-08-14 15:23] VITALS: BP_SYST 111
--- NOTE | 2022-08-14 18:44 | NUR ---
Hemodialysis today with 0 ml fluid input/output balance.
[2022-08-14 20:00] VITALS: BP_SYST 92
[2022-08-15 01:00] VITALS: BP_SYST 94
[2022-08-15] MEDS: NACL 0.9% 1,000 ML IV SCH ×3 (05:08→17:55)
[2022-08-15 05:44] LABS: BASOPHILS # (AUTO) 0.1 K/uL (0.0-0.2); EOSINOPHILS # (AUTO) 0.1 K/uL (0.0-0.4); EOSINOPHILS % (AUTO) 1.1 % (0.0-4.0); HEMOGLOBIN 9.1 g/dL (12.0-16.0); LYMPHOCYTES % (AUTO) 16.6 % (20.5-51.5); MEAN CORPUSCULAR HEMOGLOBIN 38 pg (27-31); MEAN CORPUSCULAR HGB CONC 34 % (32-36); MEAN CORPUSCULAR VOLUME 113 fL (79.0-98.0); MONOCYTES # (AUTO) 0.7 K/uL (0.0-1.0); MONOCYTES % (AUTO) 12.4 % (1.7-9.3); NEUTROPHILS # (AUTO) 4.1 K/uL (1.8-7.7); NEUTROPHILS % (AUTO) 68.9 % (40.0-70.0); RED BLOOD CELL COUNT(AUTO) 2.39 MIL/uL (4.2-6.2); RED CELL DISTRIBUTION WIDTH 19.1 % (9.0-15.0); WHITE BLOOD COUNT (AUTO) 5.9 K/uL (4.8-10.8)
[2022-08-15 05:54] LABS: PLATELET COUNT (AUTO) 42 K/uL (130-430)
[2022-08-15 06:22] LABS: ALANINE AMINOTRANSFERASE 56 U/L (12-78); ALBUMIN 2.4 g/dL (3.4-4.8); ANION GAP 12 (5-15); ASPARTATE AMINOTRANSFERASE 47 U/L (10-37); CALCIUM 8.6 mg/dL (8.4-11.0); CHLORIDE 105 mmol/L (98-107); CREATININE 3.08 mg/dL (0.55-1.30); GLUCOSE 133 mg/dL (70-99); TOTAL BILIRUBIN 0.7 mg/dL (0.0-1.0); UREA NITROGEN, BLOOD 44 mg/dL (8-21)
[2022-08-15 06:34] LABS: INR 1.2 (0.8-1.2); PROTHROMBIN TIME 12.4 SECS (9.5-12.5)
[2022-08-15 08:00] VITALS: BP_SYST 99
--- NOTE | 2022-08-15 08:00 | NUR ---
Patient alert, oriented x 4. No noted distress. Denies pain or needs. Resting quietly.
--- NOTE | 2022-08-15 08:01 | NUR ---
CLOSING NOTES: Patient was received from AM shift during change of shift. No s/s of distress noted at this time. Chest rise is even and unlabored on RA. PIV is noted patent and infusing IVF NS at 100ml/hr. Safety measures are in place as per protocol. care was resumed. 2200 Patient has been assessed as per protocol and patient has received evening medications as indicated. Patient care was provided at this time. 0100: Patient has a large loose BM. Partial bed bath was provided at this time with linen change. Barrier cream was applied at this time to the noted sacral redness. Dressing change was completed to the Central line due to dressing being partially gone. Patient was short of breath with exertion, respirations returned to normal range shortly after. 0600: Patient in bed resting no s/s of distress noted at this time. Chest rise even and unlabored on RA. Patient was soiled with BM at this time so landen care was provided at this time with linen change. All current needs have been met. 0630: Critical LAB received attempted to call Dr. LLOYD no answer. 0730: CRITICAL LAB called to report to Dr. LLOYD no answer. Report was given to day shift RN and critical Lab Values were differed to Burak ALEMAN
[2022-08-15] MEDS: RIFAXIMIN 550 MG TABLET PO SCH ×2 (09:53→21:04)
[2022-08-15] MEDS: CALCIUM ACETATE 667 MG CAP PO SCH ×3 (09:55→17:41)
[2022-08-15] MEDS: LACTULOSE 20 GM/30 ML UDC PO SCH ×3 (09:58→21:00)
--- NOTE | 2022-08-15 10:36 | NUR ---
Patient with large bowel movement earlier. PT/OT visited with patient.
[2022-08-15 11:20] LABS: HEPATITIS A AB, IgM Negative (Negative); HEPATITIS B CORE AB, IgM Negative (Negative); HEPATITIS B SURFACE AG Negative (Negative)
[2022-08-15 11:31] VITALS: BP_SYST 122
[2022-08-15 13:06] LABS: ANTI-SMOOTH MUSCLE AB 33 Units (0-19)
[2022-08-15 14:06] LABS: PTH, INTACT 75 pg/mL (15-65)
[2022-08-15 15:27] VITALS: BP_SYST 107
[2022-08-15] MEDS: cefTRIAXone 1 GM IVPB PREMIX 50 ML IV SCH (15:51)
--- NOTE | 2022-08-15 17:00 | NUR ---
Patient refusing lactulose. Dr Sharma notified. Ammonia level pending with am labs. Patient requesting advance in diet. Speech to evaluate swallow per MD.
[2022-08-15] MEDS: EPOETIN ALFA-EPBX 3,000 UNITS/ML VIAL SUBCUT SCH (17:46)
[2022-08-15 20:00] VITALS: BP_SYST 99
[2022-08-16] VITALS (8 sets, daily range): BP systolic 74–124
[2022-08-16] MEDS: NACL 0.9% 1,000 ML IV SCH (05:29)
[2022-08-16 06:26] LABS: ANION GAP 14 (5-15); CALCIUM 8.9 mg/dL (8.4-11.0); CHLORIDE 105 mmol/L (98-107); CREATININE 2.91 mg/dL (0.55-1.30); GLUCOSE 142 mg/dL (70-99); UREA NITROGEN, BLOOD 51 mg/dL (8-21)
[2022-08-16 07:40] LABS: BASOPHILS % (AUTO) 0.7 % (0.0-2.0); EOSINOPHILS # (AUTO) 0.1 K/uL (0.0-0.4); EOSINOPHILS % (AUTO) 1.2 % (0.0-4.0); HEMATOCRIT 28.2 % (36-48); HEMOGLOBIN 9.3 g/dL (12.0-16.0); LYMPHOCYTES # (AUTO) 1.2 K/uL (1.0-5.5); LYMPHOCYTES % (AUTO) 18.3 % (20.5-51.5); MEAN CORPUSCULAR HEMOGLOBIN 38 pg (27-31); MEAN CORPUSCULAR HGB CONC 33 % (32-36); MEAN CORPUSCULAR VOLUME 113 fL (79.0-98.0); MONOCYTES # (AUTO) 0.8 K/uL (0.0-1.0); MONOCYTES % (AUTO) 12.8 % (1.7-9.3); NEUTROPHILS # (AUTO) 4.3 K/uL (1.8-7.7); RED BLOOD CELL COUNT(AUTO) 2.49 MIL/uL (4.2-6.2); RED CELL DISTRIBUTION WIDTH 19.4 % (9.0-15.0); WHITE BLOOD COUNT (AUTO) 6.4 K/uL (4.8-10.8)
--- NOTE | 2022-08-16 07:41 | NUR ---
CLOSING Pt is awake AOX4, no s/s of distress, IV infusing to right forearm patent without any infiltration. call light within reached and bed at low position, Antonio catheter dressing was change twice due to her scratching it off
[2022-08-16 08:13] LABS: PLATELET COUNT (AUTO) 32 K/uL (130-430)
--- NOTE | 2022-08-16 08:30 | NUR ---
Patient in bed awake and responsive. No noted distess. Denies pain. Incontinent of bladder and stool. Bowel movement loose. Skin care rendered. Zquard applied. Repositioned with supporting pillows.
[2022-08-16] MEDS: RIFAXIMIN 550 MG TABLET PO SCH ×2 (09:13→21:53)
[2022-08-16] MEDS: CALCIUM ACETATE 667 MG CAP PO SCH ×3 (09:14→17:32)
[2022-08-16] MEDS: LACTULOSE 20 GM/30 ML UDC PO SCH ×3 (09:14→21:53)
[2022-08-16] MEDS ORDERED: TRAM50TA2 PO (11:25)
--- NOTE | 2022-08-16 11:31 | NUR ---
CONSULTATION PAGED REASON FOR CONSULTATION:THYMBOCYTOPENIA WAS CONSULT CALLED?Y PERSON WHO WAS NOTIFIED:DIDIER CONSULTING PHYSICIAN:ZOYA HICKMAN SOLUTIONS ARCHITECT SPECIALTY:HEMATOLOGY/DEVULCANIZER TENDER PHONE NUMBER:[phone] REQUESTING PHYSICIAN:ALMA TORRES
--- NOTE | 2022-08-16 12:10 | NUR ---
Dialysis in progress at bedside. No noted distress.
[2022-08-16] MEDS ORDERED: ALBUMIN HUMAN 25% 100 ML IV ONE (12:43)
--- NOTE | 2022-08-16 15:27 | NUR ---
Dialysis completed. Removed 1.4liters. BP 91/40. Patient also seen by speech therapist. Plan to advance to mechanical soft diet.
--- NOTE | 2022-08-16 15:28 | NUR ---
ST EVALUATION COMPLETED. ST TX NOT INDICATED AT THIS TIME. RECOMMEND PO DIET OF MECHANICAL SOFT/THIN LIQUID. DISTANT SUPERVISION AND FULL ASPIRATION PRECAUTIONS.
[2022-08-16] MEDS: cephALEXin 250 MG CAPSULE PO SCH ×2 (15:30→21:54)
--- NOTE | 2022-08-16 15:47 | NUR ---
Nutrition F/U Big Data Hadoop Developer reviewed pts current EMR including diet hx, physician notes, nursing notes, pertinent labs/meds/procedures, care trends and care activity. Admission Dx: Altered mental status, REGINA PMH: EMR review, 72 YOF w/ PMH of HTN and DM who presented to the ER w/ ALOC. Pt was last seen normal on 08/02 by her neighbors. Neighbors became concerned, so they called for a welfare check. Pt was found down by paramedics for an unknown amount of time. She was confused and slow to respond on scene. Pt reported that she cannot remember if she fell. In the ER, pt was confused and could not give much Hx. Pt was later found w/ encephalopathy, likely toxic-metabolic, REGINA versus acute on CKD, elevated troponin, elevated LFTs. 08/09: CT abd/pelvis revealed slight nodularity of the liver, which may suggest cirrhosis; cholelithiasis; scattered anasarca; lumbar dextroscoliosis w/ multilevel degenerative change; mild to moderate atherosclerosis; minimal bilat pleural effusions 08/15: Pt received HD s/p Antonio catheter for CKD4 I/O: 1300mL/0mL (1300mL) Subjective Information Big Data Hadoop Developer spoke w/ pt at bedside and was receiving HD during visit. No N/V/C/D. Pt has not had an appetite d/t physical inactivity. DI recommended Nepro BID, but pt preferred Ensure. Pt agreed to snacks BID. Pt mentioned of possible wt loss d/t clothes feeling loose but is unsure of how much. Spoke w/ primary RN (Burak). She said to give pt Nepro BID instead to help with her CKD and BG. Bedscale wt: 221#/100kg Current Diet Order/Nutrition Support Puree x 8 days Patient/Significant Other Able To Verbalize Education Provided Not Indicated Pertinent Medications Retacrit, Phoslo, Xifaxan, Lactulose, NS @ 100 mL Pertinent Labs Plt 32L (trending down), BUN 51H (trending down), Cre 2.91H (trending down), BG 142H (trending up) Height (Feet) 5 feet Height (Inches) 5.00 inches Weight (Pounds) 192 pounds (Stable since 08/09) Patient Weight 87.09 kg Body Mass Index 31.95 kg/m2 Usual Weight 220 lbs %UBW 87 %IBW 154 [place]/Adjusted Body Weight 125#/56.8 kg; ABW 142#/64.4 kg Recent Weight Change 28# wt loss/13% wt change (unsure of timeframe) Weight Status Obese Last BM 08/16 Gastrointestinal Symptoms None Food Allergies None per pt report Usual Diet At Home Regular per nursing nutritional screening Skin Integrity Comment: Thierno score: 14 Wounds: Erythema on anterior groin, buttocks, posterior coccyx; ecchymosis on BLE and BUE (08/16). Edema: 2+, non-pitting on BLE (08/16) % PO intake Poor, avg 35% x 19 meals Estimated Energy Expenditure (kcals/day) 5845-1834 (30-35 kcal/kg ABW d/t obesity, GERIAT status) Estimated Protein Required (g/day) 77-90 (1.2-1.4 gm/kg ABW d/t REGINA/CKD, HD, obesity, GERIAT status) Estimated Fluid Required (l/day) Per physician d/t REGINA/CKD Problem/Etiology/Signs/Symptoms *MODIFIED* * Altered nutrition-related lab values R/T endocrine & renal dysfunction AEB BUN 51H, Cre 2.91H, BG 142H (*New). * Suboptimal nutritional intakes R/T metabolic demands AEB poor PO intake records (*Improving). Expected Outcomes/Goals Monitor appetite and PO intakes w/ goal of pt meeting >50% of estimated nutritional needs, labs trending WNL, normal GI function, and skin integrity w/ wt. maintenance. Dietitian Recommendations * Pureed diet w/ Nepro TID (ONS yields 1260 kcal/day and 57 gm protein/day). * Encourage good PO intakes. * Snacks BID. * Consider alternate nutrition if PO intake remains poor for 2-3 days. Nepro @ 40 mL/hr (goal) via NGT/GT Provides: 1728 kcal, 78 g PRO, 698mL free water Follow up *High risk: 2-3 days LP, MS, RD
--- NOTE | 2022-08-16 15:47 | NUR ---
Dietitian Recommendations * Pureed diet w/ Nepro TID (ONS yields 1260 kcal/day and 57 gm protein/day). * Encourage good PO intakes. * Snacks BID. * Consider alternate nutrition if PO intake remains poor for 2-3 days. Nepro @ 40 mL/hr (goal) via NGT/GT Provides: 1728 kcal, 78 g PRO, 698mL free water LP, MS, RD Please refer to Nutrition F/U for details.
--- NOTE | 2022-08-16 16:48 | NUR ---
>>>PT NOTES<<< HOLD PT PER RN, PATIENT CURRENTLY WITH LOW BP FOLLOWING DIALYSIS. WILL FOLLOW UP TOMORROW, Friday08/17/22.
--- NOTE | 2022-08-16 19:25 | NUR ---
OPENING NOTE PT LYING IN BED WITH EYES OPEN. NO APPARENT SIGNS OF DISTRESS NOTED AT THIS TIME. BED IN LOWEST POSITION WITH FALL AND SAFETY PRECAUTIONS IN PLACE. CALL LIGHT WITHIN REACH, PT EDUCATED ON HOW TO USE IT. ALL NEEDS MET AT THIS TIME.
--- NOTE | 2022-08-16 23:10 | NUR ---
RIGHT IJ LATRICE CATH DRESSING CHANGED DRESSING WAS NOTED TO BE LIFTING. DRESSING CHANGED WITH STERILE TECHNIQUE. PT TOLERATED WELL, NO COMPLAINTS OF PAIN. SKIN SURROUNDING CATHETER WAS RED AND IRRITATED.
[2022-08-17] VITALS (7 sets, daily range): BP systolic 98–130
[2022-08-17] MEDS: cephALEXin 250 MG CAPSULE PO SCH ×3 (06:00→21:51)
[2022-08-17 06:44] LABS: INR 1.2 (0.8-1.2); PROTHROMBIN TIME 12.7 SECS (9.5-12.5)
[2022-08-17 06:57] LABS: ANION GAP 8 (5-15); CHLORIDE 105 mmol/L (98-107); CREATININE 2.02 mg/dL (0.55-1.30); GLUCOSE 133 mg/dL (70-99); UREA NITROGEN, BLOOD 33 mg/dL (8-21)
--- NOTE | 2022-08-17 07:00 | NUR ---
Report received from warehouse worker 2nd shift RN. Patient stable.
[2022-08-17 07:35] LABS: BASOPHILS # (AUTO) 0.1 K/uL (0.0-0.2); EOSINOPHILS # (AUTO) 0.1 K/uL (0.0-0.4); EOSINOPHILS % (AUTO) 0.9 % (0.0-4.0); HEMATOCRIT 26.6 % (36-48); HEMOGLOBIN 8.8 g/dL (12.0-16.0); LYMPHOCYTES # (AUTO) 1.1 K/uL (1.0-5.5); LYMPHOCYTES % (AUTO) 17.2 % (20.5-51.5); MEAN CORPUSCULAR HEMOGLOBIN 37 pg (27-31); MEAN CORPUSCULAR HGB CONC 33 % (32-36); MEAN CORPUSCULAR VOLUME 113 fL (79.0-98.0); MONOCYTES # (AUTO) 0.8 K/uL (0.0-1.0); MONOCYTES % (AUTO) 11.7 % (1.7-9.3); NEUTROPHILS # (AUTO) 4.5 K/uL (1.8-7.7); NEUTROPHILS % (AUTO) 69.2 % (40.0-70.0); RED BLOOD CELL COUNT(AUTO) 2.35 MIL/uL (4.2-6.2); RED CELL DISTRIBUTION WIDTH 19.1 % (9.0-15.0); WHITE BLOOD COUNT (AUTO) 6.5 K/uL (4.8-10.8)
[2022-08-17] MEDS: CALCIUM ACETATE 667 MG CAP PO SCH ×3 (08:50→16:53)
[2022-08-17] MEDS: RIFAXIMIN 550 MG TABLET PO SCH ×2 (08:50→21:51)
[2022-08-17] MEDS: LACTULOSE 20 GM/30 ML UDC PO SCH ×3 (08:50→21:50)
[2022-08-17 09:11] LABS: PLATELET COUNT (AUTO) 25 K/uL (130-430)
[2022-08-17] MEDS: FUROSEMIDE 20 MG/2 ML VIAL IVP SCH ×2 (12:13→22:00)
--- NOTE | 2022-08-17 13:12 | NUR ---
Medina catheter inserted. 200 mL urine. One runny diarrhea. 24 hour urine collection started.
--- NOTE | 2022-08-17 13:29 | NUR ---
PHYSICAL THERAPY CO-SIGN The Physical Therapy Progress Notes documented by Director [employer] have been reviewed. Reviewed/Co-Signed by: Adryan Valenzuela Documentation Done by:ASHLEY AVINA Addendum: 08/17/22 at 1330 by Adryan Valenzuela PT Amended: Links added.
--- NOTE | 2022-08-17 17:21 | NUR ---
Report given to markus ALEMAN for continuity of care. Patient stable.
--- NOTE | 2022-08-17 17:29 | NUR ---
paged Dr Conti regarding platelet result
--- NOTE | 2022-08-17 22:02 | NUR ---
ИВАН tavarez held BP 98/62 post HD treatment
--- NOTE | 2022-08-17 22:45 | NUR ---
IV access re-replaced to the left wrist.
[2022-08-18 00:33] VITALS: BP_SYST 111
--- NOTE | 2022-08-18 05:45 | NUR ---
IV access once again removed by patient again. IV access will not be replaced at this time by this mortgage loan underwriter.
[2022-08-18] MEDS: FUROSEMIDE 20 MG/2 ML VIAL IVP SCH ×3 (05:47→21:28)
[2022-08-18] MEDS: cephALEXin 250 MG CAPSULE PO SCH ×3 (06:28→21:32)
--- NOTE | 2022-08-18 06:45 | NUR ---
Miss Davidson has been assessed as indicated. She is pleasantly confused. She mixes past events with current day. She makes no attempts to ambulate with no assistance. She does pull out medical equipment. She has removed several IVs she removed the dressing to her HD access epeatedly. the HD access area is very red. She has some noted wheezes and 2 loose BMs this shift. She is resting quietly at this time
[2022-08-18 07:26] LABS: ALANINE AMINOTRANSFERASE 43 U/L (12-78); ALBUMIN 2.5 g/dL (3.4-4.8); ANION GAP 9 (5-15); ASPARTATE AMINOTRANSFERASE 46 U/L (10-37); CALCIUM 9.2 mg/dL (8.4-11.0); CHLORIDE 106 mmol/L (98-107); CREATININE 2.07 mg/dL (0.55-1.30); GLUCOSE 128 mg/dL (70-99); TOTAL BILIRUBIN 0.9 mg/dL (0.0-1.0); UREA NITROGEN, BLOOD 39 mg/dL (8-21)
--- NOTE | 2022-08-18 07:30 | NUR ---
Handoff has been given to Tonya
[2022-08-18 07:36] LABS: EOSINOPHILS # (AUTO) 0.1 K/uL (0.0-0.4); HEMATOCRIT 25.8 % (36-48); HEMOGLOBIN 8.6 g/dL (12.0-16.0); MEAN CORPUSCULAR HEMOGLOBIN 38 pg (27-31); MEAN CORPUSCULAR HGB CONC 33 % (32-36); MEAN CORPUSCULAR VOLUME 113 fL (79.0-98.0); MONOCYTES # (AUTO) 0.7 K/uL (0.0-1.0); MONOCYTES % (AUTO) 8.8 % (1.7-9.3); NEUTROPHILS # (AUTO) 5.7 K/uL (1.8-7.7); RED BLOOD CELL COUNT(AUTO) 2.29 MIL/uL (4.2-6.2); RED CELL DISTRIBUTION WIDTH 19.1 % (9.0-15.0); WHITE BLOOD COUNT (AUTO) 7.5 K/uL (4.8-10.8)
--- NOTE | 2022-08-18 07:45 | NUR ---
RECEIVED PT ASLEEP, SKIN WARM AND DRY. NO DRESSING IN PLACE TO RIGHT NECK LATRICE CATH. NO IV ACCESS BECAUSE PT CONTINUES TO PULL THEM OUT DESPITE BEING ORIENTED TO SELF, PLACE AND TIME. STATES SHE DOES IT UNKNOWINGLY. EXPLAINED SHE IS AT HIGH RISK FOR BLEEDING EXCESSIVELY DUE TO LOW PLATELETS AND DISEASE PROCESS. NEW DRESSING APPLIED TO NECK.
[2022-08-18 07:59] LABS: BASOPHILS % (AUTO) 0.3 % (0.0-2.0); NEUTROPHILS % (AUTO) 76.9 % (40.0-70.0); PLATELET COUNT (AUTO) 29 K/uL (130-430)
[2022-08-18] MEDS: LACTULOSE 20 GM/30 ML UDC PO SCH ×3 (09:00→20:03)
--- NOTE | 2022-08-18 09:17 | NUR ---
Nutrition F/U RD reviewed pts current EMR including diet hx, physician notes, nursing notes, pertinent labs/meds/procedures, care trends and care activity. Subjective Information RD rounded to pt room and s/w pt. She was a bit confused but was able to communicate fairly well. She denies any Gi symptoms but has been having loose stools. 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 She gave food preferences to RD; RD entered in computrition. FLEXO PRESS OPERATOR said she was eating pretty well, but not great today for some reason. Per EMR review: abd soft, non-distended w/ active bowel sounds; 08/18 labs: BUN 39H, Cre 2.07 H, K+ 3.1 L Current Diet Order/Nutrition Support Mechanical soft, Nepro BID x 0 % PO intake Fair avg of 57% x 9 meals Last BM 08/18 x 4 Estimated Energy Expenditure (kcals/day) 2028-1280 (30-35 kcal/kg ABW d/t obesity, GERIAT status) Estimated Protein Required (g/day) 77-90 (1.2-1.4 gm/kg ABW d/t REGINA/CKD, HD, obesity, GERIAT status) Estimated Fluid Required (l/day) Per physician d/t REGINA/CKD Problem/Etiology/Signs/Symptoms *MODIFIED* * Altered nutrition-related lab values R/T endocrine & renal dysfunction AEB BUN 51H, Cre 2.91H, BG 142H (*ongoing). * Suboptimal nutritional intakes R/T metabolic demands AEB poor PO intake records (*Improving). Expected Outcomes/Goals Monitor appetite and PO intakes w/ goal of pt meeting >50% of estimated nutritional needs, labs trending WNL, normal GI function, and skin integrity w/ wt. maintenance. Dietitian Recommendations * Ordered Renal Mechanical soft, Nepro BID * Encourage good PO intakes. * Snacks BID. Follow up *Moderate risk: see pt in 3-5 days GS, MPH, RD
--- NOTE | 2022-08-18 09:18 | NUR ---
Dietitian Recommendations * Ordered Renal Mechanical soft, Nepro BID * Encourage good PO intakes. * Snacks BID. GS, MPH, RD Please refer to Nutrition F/U for further details. Thanks!
[2022-08-18] MEDS: CALCIUM ACETATE 667 MG CAP PO SCH ×3 (09:24→17:54)
[2022-08-18] MEDS ORDERED: POTASSIUM CHLORIDE 20 MEQ TAB.PRT.SR PO ONE (10:00)
--- NOTE | 2022-08-18 10:00 | NUR ---
ANOTHER NEW IV INSERTED TO PT'S LEFT FOREARM. 22G WITH POSITIVE BLOOD RETURN. FLUSHES WELL. TAPED, WRAPPED, TAPED AND HIDDEN. MITTENS APPLIED PER ORDERS
[2022-08-18 10:40] LABS: BASOPHILS # (AUTO) 0.1 K/uL (0.0-0.2); BASOPHILS % (AUTO) 0.7 % (0.0-2.0); EOSINOPHILS # (AUTO) 0.1 K/uL (0.0-0.4); EOSINOPHILS % (AUTO) 0.8 % (0.0-4.0); HEMATOCRIT 26.1 % (36-48); HEMOGLOBIN 8.6 g/dL (12.0-16.0); LYMPHOCYTES % (AUTO) 12.6 % (20.5-51.5); MEAN CORPUSCULAR HEMOGLOBIN 37 pg (27-31); MEAN CORPUSCULAR HGB CONC 33 % (32-36); MEAN CORPUSCULAR VOLUME 113 fL (79.0-98.0); MONOCYTES # (AUTO) 0.7 K/uL (0.0-1.0); MONOCYTES % (AUTO) 9.6 % (1.7-9.3); NEUTROPHILS # (AUTO) 5.8 K/uL (1.8-7.7); NEUTROPHILS % (AUTO) 76.3 % (40.0-70.0); RED BLOOD CELL COUNT(AUTO) 2.31 MIL/uL (4.2-6.2); RED CELL DISTRIBUTION WIDTH 18.8 % (9.0-15.0); WHITE BLOOD COUNT (AUTO) 7.6 K/uL (4.8-10.8)
[2022-08-18 10:50] LABS: PLATELET COUNT (AUTO) 30 K/uL (130-430)
[2022-08-18 11:29] VITALS: BP_SYST 105
--- NOTE | 2022-08-18 11:55 | NUR ---
HD RN Minevra here to perform dialysis. pt repositioned. sitting up in bed eating lunch. no distress. family visiting. Chen and pt aware and agreeable to pt having mitten restraints on to prevent pulling out lines. pt has pulled out her IV numerous times "without realizing" what she was doing. has also removed central line dressing three times.
--- NOTE | 2022-08-18 12:18 | NUR ---
SPOKE AT LENGTH WITH FAMILY ABOUT PLAN OF CARE AND SNF PLACEMENT OPTION. CALLED SABI MELENDREZ FROM HCP. STATES SHE DOES NOT SPEAK TO FAMILY ON WEEKENDS, BUT WILL WRITE NOTE AND CM WILL CALL ARLETTE(SISTER) TOMORROW.
--- NOTE | 2022-08-18 12:39 | NUR ---
patient needs SSW for possible terminal gauger placement , family does not mike patient to return home, lives alone, alcoholic
[2022-08-18] MEDS ORDERED: HEPARIN SODIUM,PORCINE 5,000 UNITS/ML VIAL ONE (13:32)
[2022-08-18] MEDS ORDERED: HEPARIN SODIUM,PORCINE 5,000 UNITS/ML VIAL MC ONE (15:00)
[2022-08-18 15:28] VITALS: BP_SYST 122
--- NOTE | 2022-08-18 16:18 | NUR ---
REPORT GIVEN TO SLIM ALEMAN AT [facility] CALLED [facility]. MID LEVEL PRACTITIONER IN 30MINUTES CALLED AND UPDATED PT'S MOTHER. MADE AWARE OF TRANSFER. STATES PT WAS IN ROOM 3 AND SHOULD RETURN TO SAME ROOM HIS BELONGINGS ARE THERE. PT AWARE AND WAITING FOR TRANSPORT. Addendum: 08/18/22 at 1720 by Jojo Graham RN NOTE DOCUMENTED IN ERROR
--- NOTE | 2022-08-18 16:55 | NUR ---
pt able to remove right mitten but did not pull out iv nor right IJ. sleeping at this time. respirations even, unlabored. call light in reach. observed often for her safety.
[2022-08-18 17:15] LABS: CREATININE 2.07 mg/dL (0.55-1.30); PATIENT WEIGHT 192 LBS
[2022-08-18 17:22] LABS: TOTAL VOLUME 24HRS,URINE 550 mL
[2022-08-18] MEDS: EPOETIN ALFA-EPBX 3,000 UNITS/ML VIAL SUBCUT SCH (17:54)
--- NOTE | 2022-08-18 18:22 | NUR ---
pt's sister, Chen, at bedside. brought original advanced directive which states she is pt's DPOA. copy made and placed in chart. seen by Dr Woodson nephrology at bedside now.
--- NOTE | 2022-08-18 19:30 | NUR ---
OPENING NOTE Pt is awake lying in bed. No s/s of respiratory distress. Breathing even and unlabored on RA. Pt has bilateral mittens in place. RIJ everton cath dressing intact. Medina catheter intact and draining by gravity. Fall and safety precautions in place with bed in lowest position, bed alarm on, and call light within reach
[2022-08-18 20:00] VITALS: BP_SYST 131
[2022-08-18] MEDS: RIFAXIMIN 550 MG TABLET PO SCH (20:03)
[2022-08-19] VITALS (10 sets, daily range): BP systolic 93–153
--- NOTE | 2022-08-19 00:15 | NUR ---
ROUNDS Pt lying in bed. Noted to be out of mittens, placed back on. Fall and safety checks in place
--- NOTE | 2022-08-19 03:45 | NUR ---
LATRICE CATH: Pt was found by another nurse chewing on her RIJ latrice catheter. This RN was on lunch break, therefore the charge nurse went to the pt where a moderate amount of blood was coming out through the catheter site and tubing and saw the pt chewing on the orange connector caps from the catheter tubing. Rapid response was called. Charge nurse stopped the bleeding and changed the dressing using sterile technique. Sutures to the site were still intact. Called lab to draw ordered CBC early and notified Dr Mitchell who ordered a chest xray to see if the catheter has been pulled. Pt received dialysis yesterday and is not scheduled for dialysis today. Pt changed and repositioned for comfort, bilateral soft mitten restraints in place.
[2022-08-19 04:20] LABS: BASOPHILS # (AUTO) 0.1 K/uL (0.0-0.2); BASOPHILS % (AUTO) 0.7 % (0.0-2.0); EOSINOPHILS # (AUTO) 0.1 K/uL (0.0-0.4); EOSINOPHILS % (AUTO) 0.8 % (0.0-4.0); HEMATOCRIT 25.4 % (36-48); HEMOGLOBIN 8.3 g/dL (12.0-16.0); LYMPHOCYTES # (AUTO) 1.3 K/uL (1.0-5.5); LYMPHOCYTES % (AUTO) 15.6 % (20.5-51.5); MEAN CORPUSCULAR HEMOGLOBIN 37 pg (27-31); MEAN CORPUSCULAR HGB CONC 33 % (32-36); MEAN CORPUSCULAR VOLUME 114 fL (79.0-98.0); MONOCYTES # (AUTO) 0.8 K/uL (0.0-1.0); MONOCYTES % (AUTO) 9.2 % (1.7-9.3); NEUTROPHILS # (AUTO) 6.2 K/uL (1.8-7.7); NEUTROPHILS % (AUTO) 73.7 % (40.0-70.0); RED BLOOD CELL COUNT(AUTO) 2.23 MIL/uL (4.2-6.2); RED CELL DISTRIBUTION WIDTH 19.3 % (9.0-15.0); WHITE BLOOD COUNT (AUTO) 8.3 K/uL (4.8-10.8)
[2022-08-19 04:25] LABS: PLATELET COUNT (AUTO) 26 K/uL (130-430)
[2022-08-19 04:31] LABS: ANION GAP 6 (5-15); CALCIUM 8.7 mg/dL (8.4-11.0); CHLORIDE 105 mmol/L (98-107); CREATININE 1.76 mg/dL (0.55-1.30); GLUCOSE 165 mg/dL (70-99); UREA NITROGEN, BLOOD 34 mg/dL (8-21)
--- NOTE | 2022-08-19 05:45 | NUR ---
PT MOVED TO ROOM 104A for closer monitoring. All belongings with pt
[2022-08-19] MEDS: FUROSEMIDE 20 MG/2 ML VIAL IVP SCH ×3 (06:00→23:00)
[2022-08-19] MEDS: cephALEXin 250 MG CAPSULE PO SCH ×3 (06:05→22:00)
--- NOTE | 2022-08-19 06:40 | NUR ---
CLOSING NOTE Pt is awake lying in bed. No s/s of respiratory distress. Breathing even and unlabored on RA. Soft mitten restraints in place, pt repeatedly tries to take them off. RIJ everton catheter intact and dressed. Medina catheter intact and draining by gravity. Fall and safety precautions in place with bed in lowest position, bed alarm on, and and call light within reach
--- NOTE | 2022-08-19 07:30 | NUR ---
Morning rounds: Patient awake on the bed.Right Jugular Antonio Catheter intact,dressing clean and dry. Left forearm iv saline lock intact. With bilateral soft wrist restraint on. Call light with in reach.Bed locked at lowest position.Bed alarm on. Condition guarded.
[2022-08-19 08:07] LABS: FOLATE (FOLIC ACID) 2.5 ng/mL (>3.0)
--- NOTE | 2022-08-19 08:20 | NUR ---
Hand Over Report: Endorsed to [facility] patient's care,in stable condition.
[2022-08-19 08:34] LABS: HEPATITIS C VIRUS AB Negative <0.8 s/co (0.0-0.7)
[2022-08-19] MEDS ORDERED: LACTULOSE 20 GM/30 ML UDC PO ONE (09:45)
[2022-08-19] MEDS ORDERED: Lactulose PO (09:49)
[2022-08-19] MEDS: RIFAXIMIN 550 MG TABLET PO SCH ×2 (09:54→21:49)
[2022-08-19] MEDS: CALCIUM ACETATE 667 MG CAP PO SCH ×3 (09:54→18:09)
--- NOTE | 2022-08-19 13:00 | NUR ---
Miss Davidson had mittens removed to feed herself lunch. Upon staff collection of tray. blood was noted on Miss Davidson's gown. She removed the dressing from her HD cath, loosened the cap and opened the clip. A stat HH was ordered.
--- NOTE | 2022-08-19 13:11 | NUR ---
PHYSICAL THERAPY CO-SIGN The Physical Therapy Progress Notes documented by Manager Assurance have been reviewed. Reviewed/Co-Signed by: Adryan Valenzuela Documentation Done by:ASHLEY AVINA Addendum: 08/19/22 at 1311 by Adryan Valenzuela PT Amended: Links added.
--- NOTE | 2022-08-19 13:30 | NUR ---
HD cath removed by HD nurse MILES. process was well tolerated
[2022-08-19 14:12] LABS: HEMATOCRIT 23.3 % (36-48); HEMOGLOBIN 7.8 g/dL (12.0-16.0)
--- NOTE | 2022-08-19 14:45 | NUR ---
Clarice MELENDREZ ([phone]) states that [facility] will arrive at 1700 to transport Miss Davidson to [facility]
--- NOTE | 2022-08-19 15:38 | NUR ---
report was called to Jossue [phone]. she is to be admitted to room 18-A
--- NOTE | 2022-08-19 17:09 | NUR ---
[facility]([phone]) arrive to bedside. Departure vitals consist of BP 93/38 and heart rate that ranges from 122-142. Wilfredo EMT on unit 635 states he spoke with charge nurse at [facility] and she will not accept pt with current vitals. [facility] departs the building. Dr. Goldberg places order for fluid bolus he wants VS rechecked. no Order to hold DC order at this time. Clarice MLEENDREZ contacted at [phone] message left regarding delayed DC
[2022-08-19] MEDS ORDERED: NS 250 ML IV ONE ×2 (17:45→23:15)
--- NOTE | 2022-08-19 18:45 | NUR ---
Miss Davidson has been assessed as indicated. She continues to deny pain. She has had several loose stools. Lactulose dosing has been adjusted. HD access was removed by HD nurse. Carol has been DC at 1700. DC to [facility] has been delayed. At the time of departure her BP and heart rate were not WNL. NS Bolus has been started. She has been seen several times today by her niece Pham [phone]. She is her DPA. All arrangements have been made for DC she was to go to room 18-A. Report had been called to Joss[facility] JIANG at [phone]. transportation was [facility] [phone]. A message was left for ANEESH Oneil she has an afterhours line if needed . Miss Davidson is resting quietly at this time
--- NOTE | 2022-08-19 19:00 | NUR ---
after 250Ml NS bolus blood pressure 99/52 heart rate fluctuates between 115-122
--- NOTE | 2022-08-19 19:30 | NUR ---
Handoff has been given to Drew
--- NOTE | 2022-08-19 19:30 | NUR ---
OPENING NOTE PY LYING IN BED WITH BLOOD SPOT OVER HER ABDOMEN AND ARMS. PT PULLED HER IV CATHETER. CLEAN PT AND CHANGED BED LINEN. PT'S HR IS ELEVATED AND BP LOW. WILL CALL DR. LLOYD. BED ALARM ON AND LOWEST POSITION. CONTINUE TO MONITOR
--- NOTE | 2022-08-19 20:21 | NUR ---
PAGED DOCTOR PREMA
--- NOTE | 2022-08-19 20:44 | NUR ---
Stuart 's neice has been notified that she did not leave the facility as of yet. She was here at the bedside when Miss Davidson was being prepared for DC.
--- NOTE | 2022-08-19 20:44 | NUR ---
PAGED DOCTOR PREMA
--- NOTE | 2022-08-19 21:00 | NUR ---
RECEIVED RERURN CALL FROM DR. Mirna LLOYD REPORTED PT'S LOW BP (99/52), HR 110 -120. DR. SEO ORDERED STAT EKG. ASK THIS CURATOR OF MANUSCRIPTS CALL HIM BACK YASMIN
--- NOTE | 2022-08-19 21:30 | NUR ---
CALLED DR. JOYCE FOR EKG RESULT REPORTED TO DR. LLOYD ABOUT EKG RESULT FOLLOW : Atrial fibrillation, Borderline prolonged QT interval DR. LLOYD ORDER CARDIZEM 10mg IV, ONCE CARVEDILOL 6.25 mg BID
[2022-08-19] MEDS ORDERED: dilTIAZem HCL IVP 5 MG/ML VIAL IVP ONE (21:45)
[2022-08-19] MEDS: CARVEDILOL 6.25 MG TABLET (COREG) PO SCH (21:52)
[2022-08-19] MEDS ORDERED: ALBUMIN HUMAN 25% 100 ML IV ONE (23:15)
--- NOTE | 2022-08-19 23:30 | NUR ---
INCONTINENT CARE PT INCONTINENT. WET HER WHOLE BED LINEN. CLEAN AND GIVEN PERINEAL CARE. CHANGED PAD AND BED LINENS. CONTINUE TO MONITOR.
[2022-08-20] VITALS (10 sets, daily range): BP systolic 86–139
--- NOTE | 2022-08-20 00:20 | NUR ---
BM PT HAD BM. CLEANED PT AND CHANGED PAD. PT GETTING ALBUMIN FOR LOW BP.
--- NOTE | 2022-08-20 03:20 | NUR ---
BM PT HAD BM. LOOSE EMERY COLOR DARK BROWN. CLEANED PT AND CHANGED LINENS. APPLIED OINTMENT FOR SKIN PROTECTION. BED ALARM ON. SAFETY CHECKS IN PLACE. CONTINUE TO MONITOR
--- NOTE | 2022-08-20 04:40 | NUR ---
paged paged doctor sumner
--- NOTE | 2022-08-20 04:45 | NUR ---
RECEIVED ORDER CALLED DR. HODGES AND ORDERED STAT CBC, CMP AND KEEP MONITORING.
[2022-08-20 06:09] LABS: ANION GAP 8 (5-15); CALCIUM 9.1 mg/dL (8.4-11.0); CHLORIDE 105 mmol/L (98-107); CREATININE 1.75 mg/dL (0.55-1.30); GLUCOSE 160 mg/dL (70-99); UREA NITROGEN, BLOOD 42 mg/dL (8-21)
[2022-08-20 06:14] LABS: ALANINE AMINOTRANSFERASE 40 U/L (12-78); ALBUMIN 2.6 g/dL (3.4-4.8); ASPARTATE AMINOTRANSFERASE 46 U/L (10-37); TOTAL BILIRUBIN 0.9 mg/dL (0.0-1.0)
[2022-08-20] MEDS: cephALEXin 250 MG CAPSULE PO SCH ×3 (06:50→21:13)
[2022-08-20 07:52] LABS: BASOPHILS # (AUTO) 0.1 K/uL (0.0-0.2); BASOPHILS % (AUTO) 0.8 % (0.0-2.0); EOSINOPHILS # (AUTO) 0.1 K/uL (0.0-0.4); EOSINOPHILS % (AUTO) 1.2 % (0.0-4.0); LYMPHOCYTES # (AUTO) 1.4 K/uL (1.0-5.5); LYMPHOCYTES % (AUTO) 16.9 % (20.5-51.5); MEAN CORPUSCULAR HEMOGLOBIN 37 pg (27-31); MEAN CORPUSCULAR HGB CONC 33 % (32-36); MEAN CORPUSCULAR VOLUME 113 fL (79.0-98.0); MONOCYTES # (AUTO) 0.6 K/uL (0.0-1.0); MONOCYTES % (AUTO) 7.5 % (1.7-9.3); NEUTROPHILS % (AUTO) 73.6 % (40.0-70.0); RED CELL DISTRIBUTION WIDTH 18.8 % (9.0-15.0); WHITE BLOOD COUNT (AUTO) 8.2 K/uL (4.8-10.8)
--- NOTE | 2022-08-20 07:53 | NUR ---
CLOSING NOTE PT LYING IN BED. KEEPS TRYING TO ESCAPE FROM BED AND YELLING. BREATHING EVEN AND NONLABORED. BP LOW(86/39). HR IS STABLE (101). SAFETY CHECKS IN PLACE. CALL LIGHT IN REACH. ENDORSED TO DAY SHIFT NURSE
--- NOTE | 2022-08-20 08:00 | NUR ---
MORNING ROUNDS: RECEIVED PATIENT IN THE ROOM,HAVING BREAKFAST.IV SALINE LOCK AT LEFT WRIST INTACT,COVERED WITH COBAN. BED LOCKED AT LOWEST POSITION. BED ALARM ON. NOT IN ANY DISTRESS.
[2022-08-20 08:12] LABS: RED BLOOD CELL COUNT(AUTO) 1.79 MIL/uL (4.2-6.2)
[2022-08-20 08:17] LABS: HEMATOCRIT 20.3 % (36-48); HEMOGLOBIN 6.7 g/dL (12.0-16.0); PLATELET COUNT (AUTO) 33 K/uL (130-430)
--- NOTE | 2022-08-20 08:26 | NUR ---
PAGED: CALLED DR HODGES[facility]S [facility] AND SPOKE WITH ENOC SEQUEIRA: CRITICAL LABS.
[2022-08-20] MEDS: CARVEDILOL 6.25 MG TABLET (COREG) PO SCH ×3 (09:00→23:13)
[2022-08-20] MEDS: FOLIC ACID 1 MG TABLET PO SCH (09:39)
[2022-08-20] MEDS: RIFAXIMIN 550 MG TABLET PO SCH ×2 (09:39→21:13)
[2022-08-20] MEDS: FUROSEMIDE 20 MG/2 ML VIAL IVP SCH ×3 (09:40→23:12)
[2022-08-20] MEDS: LACTULOSE 20 GM/30 ML UDC PO SCH (09:41)
[2022-08-20] MEDS: CALCIUM ACETATE 667 MG CAP PO SCH ×3 (09:41→21:13)
--- NOTE | 2022-08-20 10:30 | NUR ---
TRANSFER CARE: REPORT GIVEN TO [facility] FOR TRANSFER OF CARE.PATIENT IN STABLE CONDITION.
--- NOTE | 2022-08-20 14:13 | NUR ---
PATIENT UNABLE TO PARTICIPATE IN PT TREATMENT D/T LOW HGB: 6.7 AND HCT: 20.3.
--- NOTE | 2022-08-20 18:26 | NUR ---
BT INITIATION: Consent signed per patient sister agreeing to administration of blood. Blood has been type and crossmatched. Blood sent from blood bank. Information on unit of blood checked against patient wristband at bedside by two nurses. All information matches. Patient or responsible alliance party informed of potential complications associated with blood transfusion. Informed of possible transfusion reaction symptoms. Aware of need to notify nurse at once of itching, shortness of breath, flushing, feeling of impending doom, or other symptoms not previously present. Vital signs taken within 5 minutes prior to initiation of transfusion. RN will remain with patient for first 15 minutes of transfusion at which time vital signs will be re-assessed.
[2022-08-20 20:09] LABS: CREATININE CLEARANCE,URINE 19.5 ml/min (80-120); CREATININE,URINE 115.8 MG/DL (30-125)
--- NOTE | 2022-08-20 21:17 | NUR ---
Blood transfusion completed. No sign of reaction. Patient tolerated well.
[2022-08-20] MEDS: EPOETIN ALFA-EPBX 3,000 UNITS/ML VIAL SUBCUT SCH (21:21)
--- NOTE | 2022-08-20 21:39 | NUR ---
RECIEVED PT BEDSIDE. BLOOD TRANSFUSION INFUSING , PT IS EATING IN BED, NO S/S OF DISTRESS. BED ALARM ON, BED IS IN LOCK, CALL LIGHT IN REACH.
--- NOTE | 2022-08-20 23:12 | NUR ---
ROUNDS CHECK PT'S BP AND WAS STABLE 129/52 HR 112. ADMINISTERED LASIX AND COREG .
[2022-08-21 00:31] VITALS: BP_SYST 101
[2022-08-21] MEDS: cephALEXin 250 MG CAPSULE PO SCH ×2 (05:18→15:08)
[2022-08-21 05:49] LABS: BASOPHILS # (AUTO) 0.1 K/uL (0.0-0.2); BASOPHILS % (AUTO) 0.7 % (0.0-2.0); EOSINOPHILS # (AUTO) 0.1 K/uL (0.0-0.4); EOSINOPHILS % (AUTO) 1.3 % (0.0-4.0); HEMATOCRIT 23.9 % (36-48); LYMPHOCYTES # (AUTO) 1.3 K/uL (1.0-5.5); LYMPHOCYTES % (AUTO) 14.6 % (20.5-51.5); MEAN CORPUSCULAR HEMOGLOBIN 37 pg (27-31); MEAN CORPUSCULAR HGB CONC 34 % (32-36); MEAN CORPUSCULAR VOLUME 111 fL (79.0-98.0); MONOCYTES # (AUTO) 0.7 K/uL (0.0-1.0); MONOCYTES % (AUTO) 7.6 % (1.7-9.3); NEUTROPHILS # (AUTO) 6.6 K/uL (1.8-7.7); NEUTROPHILS % (AUTO) 75.8 % (40.0-70.0); RED BLOOD CELL COUNT(AUTO) 2.16 MIL/uL (4.2-6.2); RED CELL DISTRIBUTION WIDTH 18.7 % (9.0-15.0); WHITE BLOOD COUNT (AUTO) 8.7 K/uL (4.8-10.8)
--- NOTE | 2022-08-21 05:57 | NUR ---
CLOSING NOTES PT IS LYING IN BED.NO S/S OF DISTRESS. SAFETY CHECKS AND CALL LIGHT WITH IN REACH. PT IS AxO 2 FORGETFUL OF WHERE SHE IS AT.
[2022-08-21 07:03] LABS: PLATELET COUNT (AUTO) 42 K/uL (130-430)
--- NOTE | 2022-08-21 07:24 | NUR ---
Patient pulled out peripheral IV, moderate amount of blood on dressing and gown. No active bleeding currently. Site covered with gauze.
[2022-08-21 09:09] VITALS: BP_SYST 102
[2022-08-21] MEDS: FUROSEMIDE 20 MG/2 ML VIAL IVP SCH (10:32)
[2022-08-21] MEDS: CALCIUM ACETATE 667 MG CAP PO SCH ×3 (10:32→18:03)
[2022-08-21] MEDS: LACTULOSE 20 GM/30 ML UDC PO SCH (10:32)
[2022-08-21] MEDS: FOLIC ACID 1 MG TABLET PO SCH (10:32)
[2022-08-21] MEDS: RIFAXIMIN 550 MG TABLET PO SCH (10:32)
[2022-08-21] MEDS: CARVEDILOL 6.25 MG TABLET (COREG) PO SCH (10:33)
[2022-08-21 11:22] VITALS: BP_SYST 96
[2022-08-21] MEDS ORDERED: FURO20TA4 PO (13:19)
[2022-08-21] MEDS ORDERED: Lactulose PO (13:21)
[2022-08-21] MEDS ORDERED: RIFA550T5 PO (13:24)
--- NOTE | 2022-08-21 13:45 | NUR ---
PHYSICAL THERAPY CO-SIGN The Physical Therapy Progress Notes documented by Designer/Writer have been reviewed. Reviewed/Co-Signed by: Adryan Valenzuela Documentation Done by:ASHLEY AVINA Addendum: 08/21/22 at 1346 by Adryan Valenzuela PT Amended: Links added.
[2022-08-21] MEDS ORDERED: LACT10SO7 PO (13:54)
[2022-08-21] MEDS ORDERED: CARV3.1246 PO (13:56)
[2022-08-21 15:18] VITALS: BP_SYST 131
--- NOTE | 2022-08-21 19:33 | NUR ---
Received a call from [facility], spoke to Thais, she said the crew is coming late, new ETA is 2030. ASH Neumann is notified.
--- NOTE | 2022-08-21 21:25 | NUR ---
pt dischRGED FROM THE FLOOR, REPORT GIVEN TO KIMBERLY
[2022-08-22] MEDS ORDERED: FUROSEMIDE 40 MG TABLET PO SCH (09:00)
[2022-08-29 12:18] LABS: HEPATITIS C VIRUS AB Negative <0.8 s/co (0.0-0.7)
== END 2022-08-21 21:16 | DRG 682 ==
LOC: SED 11:47 → STU 17:11 → SMU 08-10 16:32 → STU 08-20 09:11
PROVIDERS: ADMIT Internal Medicine; ATTEND Internal Medicine
PROC: 4A00X4Z Measurement of Central Nervous Electrical Activity, External Approach (ICD-10-PCS; principal; 2022-08-08)
PROC: 02HV33Z Insertion of Infusion Device into Superior Vena Cava, Percutaneous Approach (ICD-10-PCS; 2022-08-13)
PROC: B548ZZA Ultrasonography of Superior Vena Cava, Guidance (ICD-10-PCS; 2022-08-13)
PROC: 5A1D70Z Performance of Urinary Filtration, Intermittent, Less than 6 Hours Per Day (ICD-10-PCS; 2022-08-13)
PROC: 5A1D70Z Performance of Urinary Filtration, Intermittent, Less than 6 Hours Per Day (ICD-10-PCS; 2022-08-16)
PROC: 5A1D70Z Performance of Urinary Filtration, Intermittent, Less than 6 Hours Per Day (ICD-10-PCS; 2022-08-17)
PROC: 5A1D70Z Performance of Urinary Filtration, Intermittent, Less than 6 Hours Per Day (ICD-10-PCS; 2022-08-18)
PROC: 30233N1 Transfusion of Nonautologous Red Blood Cells into Peripheral Vein, Percutaneous Approach (ICD-10-PCS; 2022-08-20)
DX: N17.9 Acute kidney failure, unspecified (principal); E43 Unspecified severe protein-calorie malnutrition; G92.8 Other toxic encephalopathy; N39.0 Urinary tract infection, site not specified; D68.9 Coagulation defect, unspecified; M62.82 Rhabdomyolysis; I13.0 Hypertensive heart and chronic kidney disease with heart failure and stage 1 through stage 4 chronic kidney disease, or unspecified chronic kidney disease; E86.0 Dehydration; N18.4 Chronic kidney disease, stage 4 (severe); D64.9 Anemia, unspecified; E11.65 Type 2 diabetes mellitus with hyperglycemia; E11.42 Type 2 diabetes mellitus with diabetic polyneuropathy; E83.39 Other disorders of phosphorus metabolism; K70.30 Alcoholic cirrhosis of liver without ascites; D69.6 Thrombocytopenia, unspecified; E66.9 Obesity, unspecified; I48.91 Unspecified atrial fibrillation; F10.10 Alcohol abuse, uncomplicated; Y90.9 Presence of alcohol in blood, level not specified; Z20.822 Contact with and (suspected) exposure to COVID-19; K76.82 Hepatic encephalopathy; E87.5 Hyperkalemia; R74.01 Elevation of levels of liver transaminase levels; B96.1 Klebsiella pneumoniae [K. pneumoniae] as the cause of diseases classified elsewhere; I50.9 Heart failure, unspecified; R53.81 Other malaise; E88.09 Other disorders of plasma-protein metabolism, not elsewhere classified; E83.41 Hypermagnesemia; E83.52 Hypercalcemia; E11.22 Type 2 diabetes mellitus with diabetic chronic kidney disease; Z79.82 Long term (current) use of aspirin; Z79.899 Other long term (current) drug therapy; Z68.32 Body mass index [BMI] 32.0-32.9, adult; T51.91XA Toxic effect of unspecified alcohol, accidental (unintentional), initial encounter
CPT/HCPCS: 36415; 70450-TC; 70551; 71045; 72125-TC; 76376; 76700-TC; 76770; 80048; 80053; 80074; 80307; 81000; 82103; 82105; 82140; 82150; 82550; 82553; 82570; 82575; 82607; 82728; 82746; 83516; 83540; 83550; 83690; 83735; 83880; 83930; 83970; 84100; 84302; 84484; 85018; 85025; 85379; 85384; 85610-TC; 85651-TC; 85730-TC; 86038; 86140; 86480; 86803; 86886; 86900; 86901; 86920; 87086; 90935; 90937; 92610-GN; 93005; 93306; 95816; 96361; 96365; 96372; 97110-GP; 97112-GP; 97116-GP; 97163-GP; 97530-GP; 99291; G0378; G0480; G0481; G0482; J0696; J1644; J1650; J1940; J2543; J3490; P9021; P9041; Q5106; Q9963; Q9964